=== PATIENT | male | born 1980 | race African-American/Black ===

== ENCOUNTER 2016-04-05 11:32 | Emergency (ER) | payer SELFPAY ==
[~2016-04-05] VITALS: Ht 172.7 cm; Wt 72.7 kg
[~2016-04-05 11:32] MED LIST: PENI500T PO; PRED20 PO; VENTAER INH
[2016-04-05 11:34] VITALS: BP 119/68; PULSE 68; RESP 20; TEMP 98.1; O2SAT 96
[2016-04-05 12:16] LABS: BLOOD, URINE NEG (NEG); COMMENT (UR) CULT NOT INDICATED; CULTURE IF INDICATED CULT NOT INDICATED; GLUCOSE,URINE NEG (NEG); KETONE, URINE NEG (NEG); MUCUS URINE FEW /lpf (OCC); NITRITE,URINE NEG (NEG); URINE COLOR YELLOW (YELLW/STRAW)
--- NOTE | 2016-04-05 12:22 | PD ---
HPI Chief Complaint: Complaint Time Seen by Provider: 12:20 Travel History International Travel<30 days: No Contact w/Intl Traveler<30days: No Traveled to known affect area: No History of Present Illness HPI 36-year-old male presents to the emergency department for evaluation of penile lesion for 1 day. Patient states he had unprotected intercourse and that he believes he has associated transmitted infection. States he has had this happen once in the past. States he has had syphilis in the past but denies any other history of STI's. He denies any fever, chills, nausea, vomiting, abdominal pain, burning with urination, painful urination, urethral discharge, scrotal pain. Denies any medical conditions. No other complaints. PFSH Past Medical History Asthma: Yes Social History Tobacco Use: No Allergies-Medications (Allergen,Severity, Reaction): Coded Allergies: Shellfish (Verified Allergy, Severe, 10/27/12) CRABS Reported Meds & Prescriptions Reported Meds & Active Scripts Active Acyclovir 200 Mg Cap 200 Mg PO 5 TIMES A DAY 10 Days Deltasone 20 Mg Tab (Prednisone) 20 Mg Tab 20 Mg PO BID 5 Days Ventolin Hfa (Albuterol Sulfate) 18 Gm Aero 2 Puff INH Q4 PRN Pen Vk (Penicillin V Potassium) 500 Mg Tab 500 Mg PO QID 10 Days Review of Systems Except as stated in HPI: all other systems reviewed are Neg Physical Exam Narrative GENERAL: Well-nourished and well-developed pleasant patient in no acute distress who is nontoxic appearing. SKIN: Warm and dry. HEAD: Normocephalic and atraumatic. EYES: No injection, drainage, or hyphema noted. PERRLA. EOMI. ENT: No nasal drainage noted. Oropharynx is clear. NECK: Supple and the trachea is midline. CARDIOVASCULAR: Regular rate and rhythm. RESPIRATORY: Breath sounds are equal bilaterally with no accessory muscle use, wheezing, rhonchi, or crackles. GENITOURINARY: Uncircumcised. There is a vesicular lesion to the top of the penile shaft. No urethral discharge. Testes descended bilaterally without evidence of rotation. No tenderness along the scrotum or epididymis. Performed in the presence of Renzo LUJAN. NEUROLOGICAL: Awake, alert, and oriented. Normal speech and gait. Cranial nerves are grossly intact. Data Data Last Documented VS Vital Signs Date Time Temp Pulse Resp B/P Pulse Ox O2 Delivery O2 Flow Rate FiO2 04/05/16 11:34 98.1 68 20 119/68 96 Room Air Orders Urinalysis - C+S If Indicated (04/05/16 11:46) Gc And Chlamydia Pcr (04/05/16 12:22) Penicillin G Benzathine Inj (Bicillin L- (04/05/16 12:45) Rapid Plasmin Reagin Screen (04/05/16 12:33) Labs Laboratory Tests Test 04/05/16 11:55 Urine Color YELLOW Urine Turbidity CLEAR Urine pH 6.0 Urine Specific [place] 1.030 Urine Protein TRACE mg/dL Urine Glucose (UA) NEG mg/dL Urine Ketones NEG mg/dL Urine Occult Blood NEG Urine Nitrite NEG Urine Bilirubin NEG Urine Urobilinogen LESS THAN 2.0 MG/DL Urine Leukocyte Esterase SMALL Urine RBC 1 /hpf Urine WBC 4 /hpf Urine Mucus FEW /lpf Microscopic Urinalysis Comment CULT NOT INDICATED MDM Medical Decision Making Medical Screen Exam Complete: Yes Emergency Medical Condition: Yes Differential Diagnosis Herpes versus genital warts versus syphilis Narrative Course 36-year-old male presents to the emergency department for evaluation of penile lesion. Patient is afebrile, vital signs are stable. It appears to be a vesicular lesion likely herpes simplex virus. We'll take a culture. Patient is also reporting a history of syphilis, he is not really having any pain at the site and therefore will treat him empirically for syphilis with penicillin G IM here in the ED. RPR has also been ordered and pending. A urinalysis was ordered by triage nursing staff which is unremarkable, I added on a gonorrhea and chlamydia PCR. Because he is not having any urethral discharge we'll forego prophylactic treatment for gonorrhea and chlamydia at this time. Patient will be notified if positive for any of these conditions. Patient will be discharged with acyclovir. Instructed to notify partners and discussed safe sex practices. Instructed to follow-up with health Department. Diagnosis Primary Impression: Sexually transmitted infection Referrals: [facility] Dept. Patient Instructions: General Instructions, Sexually Transmitted Diseases (ED) Additional Instructions: Notify all partners. Take medications as prescribed with food and a full glass of water. Follow-up with your Primary Care Physician or [facility] Department. Return to the ED for any acute worsening of symptoms. Med/Other Pt SpecificInfo: Prescription(s) given Scripts Acyclovir 200 Mg Ess737 Mg PO 5 TIMES A DAY 10 Days Ref 0 Prov:Daniel Chávez MD 04/05/16 Disposition: 01 DISCHARGE HOME Condition: Stable Jessica Lopez Apr 05, 2016 12:22
[2016-04-05] MEDS ORDERED: ACYC200C66 PO (12:44)
[2016-04-05] MEDS ORDERED: PENICILLIN G BENZATHINE 2,400,000 UNITS/4 ML SYRINGE IM ONE (12:45)
[2016-04-05 20:36] LABS: CHLAMYDIA PCR NOT DETECTED (NOT DETECT); NEISSERIA PCR NOT DETECTED (NOT DETECT)
== END 2016-04-05 13:36 | disposition home or self-care (01) ==
LOC: NEPB 11:32
DX: A64 Unspecified sexually transmitted disease (principal)
CPT/HCPCS: 81001; 86592; 87255; 87491; 87591; 96372; 99282; J0561

== ENCOUNTER 2016-09-03 17:24 | Emergency (ER) | payer SELFPAY ==
[~2016-09-03] VITALS: Ht 172.7 cm; Wt 70.0 kg
[~2016-09-03 17:24] MED LIST changes: +ACYC200C66 PO
[2016-09-03 19:47] VITALS: BP 167/94; PULSE 64; RESP 18; TEMP 99; O2SAT 100
--- NOTE | 2016-09-03 20:11 | PD ---
HPI Chief Complaint: Skin Problem Time Seen by Provider: 19:52 Travel History International Travel<30 days: No Contact w/Intl Traveler<30days: No Traveled to known affect area: No History of Present Illness HPI 36yo M with no PMH presents to the ED for wound check in his left elbow. States he noticed something that may have been a bite in his left elbow 4 days ago. 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 Denies any pain but his boss wants him to come get it checked out. States it popped on its own but no pus came out. Denies any fever, chest pain, sob, n/v, abdominal pain, focal weakness or numbness. PFSH Past Medical History Asthma: Yes Diminished Hearing: No Tetanus Vaccination: < 5 Years Influenza Vaccination: No Past Surgical History Surgical History: No Previous Surgery Social History Alcohol Use: Yes (OCCASSIONALLY) Tobacco Use: Yes (1/2 PPD) Substance Use: No Allergies-Medications (Allergen,Severity, Reaction): Coded Allergies: Shellfish (Verified Allergy, Severe, 09/03/16) CRABS Reported Meds & Prescriptions Reported Meds & Active Scripts Active Acyclovir 200 Mg Cap 200 Mg PO 5 TIMES A DAY 10 Days Review of Systems Except as stated in HPI: all other systems reviewed are Neg Physical Exam Narrative GENERAL: 36yo M not in distress. SKIN: Focused skin assessment warm/dry. HEAD: Atraumatic. Normocephalic. EYES: Pupils equal and round. No scleral icterus. No injection or drainage. ENT: No nasal bleeding or discharge. Mucous membranes pink and moist. NECK: Trachea midline. No JVD. CARDIOVASCULAR: Regular rate and rhythm. No murmur appreciated. RESPIRATORY: No accessory muscle use. Clear to auscultation. Breath sounds equal bilaterally. GASTROINTESTINAL: Abdomen soft, non-tender, nondistended. MUSCULOSKELETAL: Left elbow: FROM left elbow. 2cm by 2cm round superficial ulcer with mild erythema surrounding. No purulent discharge. Distal pulses intact. Sensation intact. NEUROLOGICAL: Awake and alert. No obvious cranial nerve deficits. Motor grossly within normal limits. Normal speech. PSYCHIATRIC: Appropriate mood and affect; insight and judgment normal. Data Data Last Documented VS Vital Signs Date Time Temp Pulse Resp B/P Pulse Ox O2 Delivery O2 Flow Rate FiO2 09/03/16 19:47 99.0 64 18 167/94 100 Room Air Orders Elbow, Limited (Ap&Lat) (09/03/16 ) MDM Medical Decision Making Medical Screen Exam Complete: Yes Emergency Medical Condition: Yes Differential Diagnosis Cellulitis vs. abscess that resolved vs. bug bite Narrative Course 36yo M here for wound check in left elbow. Unsure if something bit him and he hit something. Pt is well appearing and has no systemic symptoms. Xray left elbow showed no acute disease. Pt given first dose of bactrim here. Return precautions given. Pt denies any pain and does not want anything for pain at this time. Diagnosis Primary Impression: Cellulitis Qualified Code: L03.114 - Cellulitis of left upper extremity Patient Instructions: General Instructions Departure Forms: Tests/Procedures Additional Instructions: Please follow up with [facility] in 2 days for wound check. Return to the ED if symptoms worsen. Med/Other Pt SpecificInfo: Prescription(s) given Scripts Sulfamethoxazole-Trimethoprim (Bactrim DS)800-160 Mg Tab1 Tab PO BID #14 TAB Ref 0 Prov:Samanta Malhotra DO 09/03/16 Disposition: 01 DISCHARGE HOME Condition: Stable Samanta Malhotra DO Sep 03, 2016 20:11
--- NOTE | 2016-09-03 20:39 | RADRPT ---
EXAM DATE/TIME: 09/03/2016 20:15 [place] COMPARISON: No previous studies available for comparison. INDICATIONS : Open sore on posterior surface of left elbow MEDICAL HISTORY : None. SURGICAL HISTORY : None. ENCOUNTER: Initial ACUITY: 1 week PAIN SCORE: 2/10 LOCATION: Left posterior elbow FINDINGS: Two view examination of the left elbow demonstrates no soft tissue swelling, joint effusion, fracture or dislocation. Bony mineralization is normal. CONCLUSION: No acute disease. Reyes Arnold MD on September 03, 2016 at 20:37 Board Certified Radiologist. This report was verified electronically.
[2016-09-03] MEDS ORDERED: BACT800T5 PO (21:04)
[2016-09-03] MEDS ORDERED: SULFAMETHOXAZOLE-TRIMETHOPRIM DS 800-160 MG TAB PO ONE (21:15)
== END 2016-09-03 21:25 | disposition home or self-care (01) ==
LOC: NEPD 17:24
DX: L03.114 Cellulitis of left upper limb (principal); F17.210 Nicotine dependence, cigarettes, uncomplicated
CPT/HCPCS: 73070; 99283